=== PATIENT | male | born 1960 | race Caucasian/White ===

== ENCOUNTER 2021-09-06 09:37 | Emergency (ER) | payer SELFPAY ==
[~2021-09-06] VITALS: Ht 193 cm; Wt 125.2 kg
[2021-09-06] MEDS ORDERED: TRADJENTA5 MG PO (10:11)
[2021-09-06] MEDS ORDERED: METFORMIN HCL1000 MG PO (10:11)
[2021-09-06] MEDS ORDERED: TRIAMTERENE-HC1 EAC2 PO (10:11)
[2021-09-06] MEDS ORDERED: VICTOZA 2-0.6 MG/0.1 SUB-Q (10:12)
[2021-09-06] MEDS ORDERED: OMEPRAZOLE20 MG PO (10:12)
[2021-09-06] MEDS ORDERED: ATORVASTATIN CA40 MG PO (10:12)
[2021-09-06] MEDS ORDERED: LOSARTAN POTASS50 MG PO (10:12)
[2021-09-06] MEDS ORDERED: FREESTYLE LITE1 EAC2 MISC (10:12)
[2021-09-06] MEDS ORDERED: HYDROCODON-ACE1 EA10 PO (10:41)
== END 2021-09-06 11:05 | disposition home or self-care (01) ==
LOC: ED 09:37
DX: K02.9 Dental caries, unspecified (principal); Z79.52 Long term (current) use of systemic steroids; Z79.899 Other long term (current) drug therapy; Z79.84 Long term (current) use of oral hypoglycemic drugs
CPT/HCPCS: 99282

== ENCOUNTER 2021-09-09 14:36 | Emergency (ER) | payer SELFPAY ==
[~2021-09-09] VITALS: Ht 193 cm; Wt 125.2 kg
[~2021-09-09 14:36] MED LIST: ATORVASTATIN CA40 MG PO; FREESTYLE LITE1 EAC2 MISC; HYDROCODON-ACE1 EA10 PO; LOSARTAN POTASS50 MG PO; METFORMIN HCL1000 MG PO; OMEPRAZOLE20 MG PO; TRADJENTA5 MG PO; TRIAMTERENE-HC1 EAC2 PO; VICTOZA 2-0.6 MG/0.1 SUB-Q
--- OUTSIDE RECORDS SUMMARY | 2021-09-09 14:38 | XMS ---
PreManage Notification: LINDSAY NICHOLAS [employer] Analyst Events No recent Security Events currently on file CRITERIA MET - [facility] - 2 Visits in 30 Days CARE PROVIDERS KEN WATSON Physician Director Of Program Management Current PHONE: Unknown Tegan has no Care Guidelines for this patient. E.[place]ula VISIT COUNT (12 MO.) 2 [facility] TOTAL 2 NOTE: Visits indicate total known visits. ED/UCC VISIT TRACKING (12 MO.) 09/09/2021 14:36 [facility] TYPE: Emergency COMPLAINT: - BLOOD SUGAR PROBLEM 09/06/2021 09:38 [facility] TYPE: Emergency COMPLAINT: - R SIDE JAW PAIN INPATIENT VISIT TRACKING (12 MO.) No inpatient visits to display in this time frame [email or web address]
[2021-09-09] MEDS ORDERED: PENICILLIN V P500 MG PO (15:41)
[2021-09-09] MEDS ORDERED: ONDANSETRON ODT4 MG PO (18:22)
--- NOTE | 2021-09-09 21:32 | EKG ---
[facility] [address] [facility] [place] [address] Signed Sinus rhythm with premature atrial complexes Otherwise normal ECG No previous ECGs available Confirmed by ALE MAYS MD ([id number]) on 09/09/2021 9:32:19 PM Electronically Signed By: ALE MAYS MD 09/09/212131 PATIENT NAME: LINDSAY NICHOLAS Electrocardiogram DATE OF : 62 PHYSICIAN: ALE MAYS MD REPORT #: [id number] REPORT IS CONFIDENTIAL AND NOT TO BE RELEASED WITHOUT AUTHORIZATION
== END 2021-09-09 18:45 | disposition home or self-care (01) ==
LOC: ED 14:36
DX: E11.65 Type 2 diabetes mellitus with hyperglycemia (principal); E86.0 Dehydration; Z20.822 Contact with and (suspected) exposure to COVID-19; I10 Essential (primary) hypertension; K21.9 Gastro-esophageal reflux disease without esophagitis; Z88.8 Allergy status to other drugs, medicaments and biological substances; Z79.899 Other long term (current) drug therapy; Z79.84 Long term (current) use of oral hypoglycemic drugs
CPT/HCPCS: 36415; 71045; 80053; 81001; 83735; 84484; 85025; 87502; 93005; 93010; 96360; 99284-25; C9803; J7030; U0003

== ENCOUNTER 2022-01-18 19:49 | Emergency (ER) | payer OTHER ==
[~2022-01-18] VITALS: Ht 193 cm; Wt 124.0 kg
[~2022-01-18 19:49] MED LIST changes: +ONDANSETRON ODT4 MG PO; +PENICILLIN V P500 MG PO
--- NOTE | 2022-01-19 21:06 | EKG ---
[facility] [address] [place] [address] Signed Sinus rhythm with premature atrial complexes Otherwise normal ECG When compared with ECG of 09-SEP-2021 17:29, No significant change was found Confirmed by Katherine Lowry MD () on 01/19/2022 9:06:48 PM Electronically Signed By: KATHERINE LOWRY MD 01/19/222105 PATIENT NAME: YUROLF Electrocardiogram DATE OF : 62 PHYSICIAN: KATHERINE LOWRY MD REPORT #: [id number] REPORT IS CONFIDENTIAL AND NOT TO BE RELEASED WITHOUT AUTHORIZATION
== END 2022-01-18 23:02 | disposition home or self-care (01) ==
LOC: ED 19:49
DX: E86.0 Dehydration (principal); R11.2 Nausea with vomiting, unspecified; T50.995A Adverse effect of other drugs, medicaments and biological substances, initial encounter; I10 Essential (primary) hypertension; E11.9 Type 2 diabetes mellitus without complications; K21.9 Gastro-esophageal reflux disease without esophagitis; Z88.8 Allergy status to other drugs, medicaments and biological substances; Z79.84 Long term (current) use of oral hypoglycemic drugs; Z79.899 Other long term (current) drug therapy; X58.XXXA Exposure to other specified factors, initial encounter
CPT/HCPCS: 36415; 80053; 81001; 83690; 83735; 84484; 85025; 93005; 93010; 96361; 96374; 99284-25; A9270; J2405; J7040; J7121

== ENCOUNTER 2023-08-06 07:00 | Day surgery (SDC) | payer OTHER ==
[2023-08-03 09:30] VITALS: BP 143/90
[~2023-08-06] VITALS: Ht 193 cm; Wt 130.0 kg
[~2023-08-06 07:00] MED LIST changes: +IBLOOD GLUCOSE TEST STRIP 1 EA TEST VI PRN; +LACTATED RINGER'S 1,000 ML IV SCH; +LIDOCAINE HCL 1% 5 ML SDV INJ ONE; +MIDAZOLAM HCL 5 MG/5 ML VIAL IV PRN; +fentaNYL citrate 100 MCG/2 ML VIAL IV PRN
[2023-08-06 07:21] VITALS: BP 147/93
--- NOTE | 2023-08-06 07:33 | NUR ---
VISITED DURING SPIRITUAL CARE ROUNDS. PT AND IN GENERALLY GOOD SPIRITS, DID NOT EXPRESS ANY CONCERNS REGARDING PROCEDURE. PROVIDED HOSPITALITY, SUPPORTIVE PRESENCE, PRAYER. PT AND EXPRESSED APPRECIATION FOR VISIT.
[2023-08-06] MEDS ORDERED: SEMGLEE (Y100 UNIT/2 SUB-Q (07:38)
[2023-08-06] MEDS ORDERED: GLIMEPIRIDE4 MG PO (07:38)
[2023-08-06] MEDS ORDERED: FARXIGA10 MG PO (07:39)
[2023-08-06] MEDS ORDERED: propofoL 200 MG/20 ML VIAL ONE (08:24)
[2023-08-06] MEDS ORDERED: LIDOCAINE HCL 2% 5 ML SDV ONE (08:24)
[2023-08-06] MEDS ORDERED: fentaNYL citrate 100 MCG/2 ML VIAL ONE (08:36)
--- NOTE | 2023-08-06 09:08 | NUR ---
08/06/23 0908 Emmanuel Sims 0850: PT ARRIVED TO PACU VIA STRETCHER WITH ORAL AIRWAY IN PLACE AND ON 6 L VIA MASK. PT NOT ARROUSABLE AT THIS TIME. 0855: PT REMAINS ON 6L VIA MASK WITH ORAL AIRWAY IN PLACE. SATS 98% AT THIS TIME. 0900: PT STILL HAS ORAL AIRWAY IN PLACE. REMAINS ON 6L VIA MASK: 0908: PT PULLING AT MASK. ORAL WAY REMOVED AND PATIENT TITRATED TO ROOM AIR AT THIS TIME. PT HAS NO COMPLAINTS OF PAIN OR NAUSEA AT THIS TIME
[2023-08-06 09:26] VITALS: BP 144/94
--- NOTE | 2023-08-06 09:38 | OR ---
[facility] [address] [place], [place] [address] Signed DATE OF OPERATION: 08/06/2023 SURGEON: Charla Frey MD PREOPERATIVE DIAGNOSIS: Screening. POSTOPERATIVE DIAGNOSIS: Minimal internal hemorrhoids. PROCEDURE: Colonoscopy without biopsy. ESTIMATED BLOOD LOSS: None. INDICATIONS: Rolf is a 62-year-old obese diabetic gentleman, asked to see me for a followup colonoscopy. He underwent a colonoscopy in 2011 at the age of 51 in [place], [place]. He said that was negative. He was told to follow up in 10 years. He is now moved to our area. He has no family history of colon cancer or polyps. He has no lower GI complaints. In the office, I gave him a pamphlet on colonoscopy. We reviewed the nature of the test. There is risk including, but not limited to gas bloating, crampy abdominal pain, bleeding, perforation requiring surgery, and missed diagnosis. We also reviewed the written instructions for the bowel prep line by line. Also because of his large size along with the significant sleep apnea and his diabetes and so forth we asked for monitored anesthesia care with propofol infusion. In that regard, he needed preoperative blood work and an EKG. He had expressed understanding and wished to proceed. PROCEDURE IN DETAIL: Rolf was taken into our endoscopy suite and placed in the left lateral decubitus position. He was given monitored anesthesia care with propofol infusion per our nurse exhibits curator. We could see that he has normal sinus rhythm on his preop EKG. He did have a short run of atrial fibrillation during that procedure. Otherwise, he did well. A digital rectal exam was performed. This was unremarkable. He has good sphincter tone. No external hemorrhoids. No internal masses that we could palpate. The bottom of his prostate is indurated. The adult colonoscope was introduced and advanced under direct visualization into the cecum itself. Overall, his prep was good. He had a little bit of liquid particulate stool matter that I could not quite suction out Electronically Signed By: CHARLA FREY MD 08/06/23 0938 PATIENT NAME: ROLF NICHOLAS OPERATIVE REPORT DATE OF : 62 REPORT #: [id number] PHYSICIAN: CHARLA FREY MD PCP: KEN WATSON PAC REPORT IS CONFIDENTIAL AND NOT TO BE RELEASED WITHOUT AUTHORIZATION [facility] [address] [place], [place] [address] Signed completely in the sigmoid colon. In the future, he should double the polyethylene glycol up to 1 gallon. The scope was then slowly withdrawn. We took pictures throughout for photodocumentation. We found no pathology throughout the entire colon or rectum. Once in the rectum, the scope had been retroflexed and he has very minimal if any internal hemorrhoid tissue. After this, the gas was suctioned out and the colonoscope removed. Rolf tolerated the procedure quite well. RECOMMENDATIONS: Rolf can follow up in 10 years for repeat screening colonoscopy. He will need to do at least a full gallon of polyethylene glycol in the future. He did have a small amount of atrial fibrillation during that procedure and he might consider reviewing that with his primary care provider. Charla Frey MD ALB/MODL /[id number] cc: MD Ken Larsen PA Copies: CHARLA FREY MD ~ Electronically Signed By: CHARLA FREY MD 08/06/23 0938 PATIENT NAME: ROLF NICHOLAS OPERATIVE REPORT DATE OF : 62 REPORT #: [id number] PHYSICIAN: CHARLA FREY MD PCP: KEN WATSON PAC REPORT IS CONFIDENTIAL AND NOT TO BE RELEASED WITHOUT AUTHORIZATION
== END 2023-08-06 09:36 | disposition home or self-care (01) ==
LOC: DS 07:00
PROVIDERS: ATTEND Colon & Rectal Surgery
PROC: 0DJD8ZZ Inspection of Lower Intestinal Tract, Via Natural or Artificial Opening Endoscopic (ICD-10-PCS; principal; 2023-08-06 08:15)
DX: Z12.11 Encounter for screening for malignant neoplasm of colon (principal); K64.8 Other hemorrhoids; I10 Essential (primary) hypertension; E11.9 Type 2 diabetes mellitus without complications; I25.10 Atherosclerotic heart disease of native coronary artery without angina pectoris; E78.5 Hyperlipidemia, unspecified; E66.9 Obesity, unspecified; G47.33 Obstructive sleep apnea (adult) (pediatric); Z79.84 Long term (current) use of oral hypoglycemic drugs; Z79.4 Long term (current) use of insulin; Z79.899 Other long term (current) drug therapy; Z68.36 Body mass index [BMI] 36.0-36.9, adult
CPT/HCPCS: J2001; J2704; J3010; J7121